=== PATIENT | male | born 1990 | race Caucasian/White ===

== ENCOUNTER 2023-11-06 09:00 | Outpatient (CLI) | payer SELFPAY ==
--- NOTE | 2023-11-06 20:12 | XRAY Report ---
PROCEDURE: Elbow 3+V LT INDICATIONS: CONTUSION OF LEFT ELBOW TECHNIQUE: 3 views of the elbow were acquired. COMPARISON: None FINDINGS: Bones: No fractures or dislocations. No suspicious bony lesions. Calcification density adjacent t o the medial humeral epicondyle Soft tissues: Large elbow joint effusion. No suspicious soft tissue calcifications. IMPRESSION: Large joint effusion with probable medial condyle avulsion fracture Reviewed by: Piero Adamson MD on 11/06/2023 7:11 PM AKST Approved by: Piero Adamson MD on 11/06/2023 7:11 PM AKST Station ID: [id number]
== END 2023-11-06 09:15 | disposition home or self-care (01) ==
LOC: DI.N 09:00
PROVIDERS: ATTEND Physician Assistant Medical
DX: S50.02XA Contusion of left elbow, initial encounter (principal); M25.422 Effusion, left elbow

== ENCOUNTER → 2023-12-09 23:59 | Outpatient (CLI) | payer BC ==
--- NOTE | 2023-12-09 20:40 | XRAY Report ---
PROCEDURE: Elbow 3 View LT INDICATIONS: LEFT ELBOW FRACTURE TECHNIQUE: 3 views of the elbow were acquired. COMPARISON: 11/06/2023 FINDINGS: Large joint effusion present. Small calcific density noted adjacent to the medial humeral condyle yari ws remodeling compared to the prior exam. Radial head appears intact. IMPRESSION: Small medial humeral avulsion fracture shows remodeling compared to the prior exam. Large joint effus ion persists Reviewed by: Piero Adamson MD on 12/09/2023 7:39 PM AKDT Approved by: Piero Adamson MD on 12/09/2023 7:39 PM AKDT Station ID: [id number]
== END | disposition home or self-care (01) ==
LOC: DI.WOS 12-08 07:36
PROVIDERS: ATTEND Physician Assistant Surgical
DX: S42.402D Unspecified fracture of lower end of left humerus, subsequent encounter for fracture with routine healing (principal); M25.412 Effusion, left shoulder